=== PATIENT | male | born 1945 | race Caucasian/White ===

== ENCOUNTER 2020-11-07 14:23 | Inpatient (IN) | payer MEDICARE, BC ==
[2020-11-07 15:05] LABS: #Basophils 0.1 10x3/uL (0.0-0.2); #Eosinphils 0.3 10x3/uL (0.0-0.5); #Monocytes 0.5 10x3/uL (0.0-1.1); #Neutrophils 6.2 10x3/uL (1.5-8.4); %Basophils 0.7 % (0.0-2.0); %Eosinophils 3.7 % (0.0-6.0); %Lymphocytes 15.8 % (18.0-47.0); %Monocytes 6.1 % (0.0-10.0); %Neutrophils 73.2 % (40.0-75.0); ALT (SGPT) 9 U/L (8-55); AST (SGOT) 14 U/L (5-34); Albumin 3.8 g/dL (3.4-4.8); Alkaline Phosphatase 99 U/L (40-110); Anion Gap 20 mmol/L (10-20); BUN (Urea Nitrogen) 21 mg/dL (8.4-25.7); Bilirubin, Total 0.5 mg/dL (0.2-1.2); Calc. Creatinine Clearance 0 mL/min (70-130); Calcium 9.5 mg/dL (7.8-10.44); Carbon Dioxide 23 mmol/L (23-31); Chloride 106 mmol/L (98-107); Globulin 3.4 g/dL (2.4-3.5); Glucose 194 mg/dL (83-110); Hemoglobin 11.9 g/dL (13.5-17.5); Mean Corpuscular HGB CONC 32.3 g/dL (32.0-36.0); Mean Corpuscular Hemoglobin 30.4 pg (27.0-33.0); Mean Corpuscular Volume 93.9 fl (81.2-95.1); Mean Platelet Volume 10.6 fl (7.4-10.4); Platelet Count 266 10x3/uL (150-450); Potassium 4.8 mmol/L (3.5-5.1); Protein, Total 7.2 g/dL (5.8-8.1); RBC Distribution Width 14.2 % (11.5-14.5); Red Blood Cell (RBC) Count 3.92 10x6/uL (4.32-5.72); Sodium 144 mmol/L (136-145); White Blood Cell (WBC) Count 8.4 10x3/uL (3.5-10.5)
[2020-11-07] MEDS ORDERED: Nitroglycerin 2% Ointment 1 INCH/1 GM Packet ONE (17:04)
[2020-11-07] MEDS ORDERED: Aspirin 325 MG TAB ONE (17:04)
[2020-11-07] MEDS ORDERED: Furosemide 40 MG/4 ML VIAL ONE (17:55)
[2020-11-07 18:10] LABS: Troponin I Less than 0.010 ng/mL (< 0.028)
[2020-11-07 20:31] VITALS: BMI 39.5
[2020-11-07] MEDS ORDERED: Ondansetron ODT 4 MG TAB PO PRN (20:31)
[2020-11-07] MEDS ORDERED: Acetaminophen 325 MG TAB PO PRN (20:31)
[2020-11-07] MEDS ORDERED: Ondansetron PF 4 MG/2 ML Vial IVP PRN (20:31)
[2020-11-07] MEDS ORDERED: Dextrose 50% Abboject 50 ML SYRINGE SLOW IVP PRN (20:49)
[2020-11-07] MEDS ORDERED: Dextrose 5% in Water 1,000 ML IV PRN (20:49)
[2020-11-07] MEDS ORDERED: Furosemide 40 MG/4 ML VIAL SLOW IVP SCH (21:00)
[2020-11-07] MEDS: Carvedilol 3.125 MG TAB PO SCH (21:03)
[2020-11-07 21:11] LABS: Troponin I Less than 0.010 ng/mL (< 0.028)
[2020-11-08] MEDS ORDERED: Furosemide 40 MG/4 ML VIAL SLOW IVP SCH (06:00)
[2020-11-08] MEDS: Carvedilol 3.125 MG TAB PO SCH (06:13)
[2020-11-08 07:04] LABS: ALT (SGPT) 9 U/L (8-55); AST (SGOT) 16 U/L (5-34); Albumin 3.6 g/dL (3.4-4.8); Alkaline Phosphatase 94 U/L (40-110); Anion Gap 19 mmol/L (10-20); BUN (Urea Nitrogen) 21 mg/dL (8.4-25.7); Bilirubin, Total 0.5 mg/dL (0.2-1.2); Calc. Creatinine Clearance 90 mL/min (70-130); Calcium 9.5 mg/dL (7.8-10.44); Carbon Dioxide 28 mmol/L (23-31); Chloride 100 mmol/L (98-107); Globulin 3.9 g/dL (2.4-3.5); Glucose 178 mg/dL (83-110); Magnesium 1.4 mg/dL (1.6-2.6); Potassium 3.5 mmol/L (3.5-5.1); Protein, Total 7.5 g/dL (5.8-8.1); Sodium 143 mmol/L (136-145)
[2020-11-08 07:19] LABS: #Basophils 0.1 10x3/uL (0.0-0.2); #Eosinphils 0.4 10x3/uL (0.0-0.5); #Monocytes 0.6 10x3/uL (0.0-1.1); #Neutrophils 6.2 10x3/uL (1.5-8.4); %Basophils 0.8 % (0.0-2.0); %Eosinophils 4.9 % (0.0-6.0); %Lymphocytes 15.2 % (18.0-47.0); %Monocytes 7.3 % (0.0-10.0); %Neutrophils 71.6 % (40.0-75.0); Mean Corpuscular HGB CONC 32.4 g/dL (32.0-36.0); Mean Corpuscular Hemoglobin 30.2 pg (27.0-33.0); Mean Platelet Volume 10.4 fl (7.4-10.4); Platelet Count 270 10x3/uL (150-450); RBC Distribution Width 14.2 % (11.5-14.5); Red Blood Cell (RBC) Count 3.98 10x6/uL (4.32-5.72); White Blood Cell (WBC) Count 8.6 10x3/uL (3.5-10.5)
[2020-11-08] MEDS: Aspirin Chewable 81 MG TAB PO SCH (10:46)
[2020-11-08] MEDS: Enoxaparin Sodium 40 MG/0.4 ML SYRINGE SC SCH (10:47)
[2020-11-08 11:29] LABS: Hemoglobin A1c 7.9 % (4.0-6.0)
[2020-11-08] MEDS: Gemfibrozil 600 MG TAB PO SCH (17:13)
[2020-11-08 18:21] LABS: SARS-CoV-2 PCR by NAA Not Detected (NotDetected)
[2020-11-08] MEDS ORDERED: Atorvastatin Calcium 10 MG TAB PO SCH (21:00)
[2020-11-08] MEDS: Carvedilol 12.5 MG TAB PO SCH (21:45)
[2020-11-08] MEDS: Gabapentin 300 MG CAP PO SCH (23:45)
[2020-11-09 04:10] LABS: #Basophils 0.1 10x3/uL (0.0-0.2); #Eosinphils 0.4 10x3/uL (0.0-0.5); #Monocytes 0.7 10x3/uL (0.0-1.1); #Neutrophils 5.2 10x3/uL (1.5-8.4); %Basophils 0.9 % (0.0-2.0); %Eosinophils 4.7 % (0.0-6.0); %Lymphocytes 18.7 % (18.0-47.0); %Neutrophils 66.3 % (40.0-75.0); Hemoglobin 12.2 g/dL (13.5-17.5); Mean Corpuscular HGB CONC 33.2 g/dL (32.0-36.0); Mean Corpuscular Hemoglobin 30.2 pg (27.0-33.0); Mean Corpuscular Volume 90.8 fl (81.2-95.1); Mean Platelet Volume 9.8 fl (7.4-10.4); Platelet Count 260 10x3/uL (150-450); Red Blood Cell (RBC) Count 4.04 10x6/uL (4.32-5.72); White Blood Cell (WBC) Count 7.9 10x3/uL (3.5-10.5)
[2020-11-09 04:30] LABS: Anion Gap 18 mmol/L (10-20); BUN (Urea Nitrogen) 22 mg/dL (8.4-25.7); Calc. Creatinine Clearance 91 mL/min (70-130); Calcium 9.1 mg/dL (7.8-10.44); Carbon Dioxide 27 mmol/L (23-31); Chloride 100 mmol/L (98-107); Glucose 188 mg/dL (83-110); Potassium 3.8 mmol/L (3.5-5.1); Sodium 141 mmol/L (136-145)
[2020-11-09] MEDS: HumaLOG 300 UNITS/3 ML VIAL SC PRN ×3 (06:36→13:48)
[2020-11-09] MEDS: Gabapentin 300 MG CAP PO SCH (08:50)
[2020-11-09] MEDS: Gemfibrozil 600 MG TAB PO SCH (08:51)
[2020-11-09] MEDS: Aspirin Chewable 81 MG TAB PO SCH (08:51)
[2020-11-09] MEDS: Carvedilol 12.5 MG TAB PO SCH (08:51)
[2020-11-09] MEDS: Enoxaparin Sodium 40 MG/0.4 ML SYRINGE SC SCH (08:52)
[2020-11-09] MEDS ORDERED: Pioglitazone HCl 15 MG TAB PO SCH (09:00)
[2020-11-09] MEDS ORDERED: Losartan Potassium 50 MG TAB PO SCH (09:00)
[2020-11-09] MEDS ORDERED: FLUoxetine HCl 20 MG CAP PO SCH (09:00)
[2020-11-09] MEDS ORDERED: Alogliptin 25 MG TAB PO SCH (09:00)
[2020-11-09 11:16] LABS: Hemoglobin A1c 7.8 % (4.0-6.0)
[2020-11-09] MEDS ORDERED: Arformoterol 15 MCG/2 ML NEB NEB SCH ×2 (13:30→18:30)
[2020-11-09 16:15] VITALS: BP 147/77; TEMP 97.9
[2020-11-10] MEDS ORDERED: Furosemide 20 MG TAB PO SCH (12:00)
== END 2020-11-09 16:20 | disposition home or self-care (01) | DRG 291 ==
LOC: CSHERS 14:23 → CSHTELE 17:33 → UNDOADMOB 20:15 → CSHTELE 20:15 → INTOOBSV 20:15 → OBSVTOIN 11-09 12:22
PROVIDERS: ADMIT Student in an Organized Health Care Education/Training Program; ATTEND Family Medicine
DX: I13.0 Hypertensive heart and chronic kidney disease with heart failure and stage 1 through stage 4 chronic kidney disease, or unspecified chronic kidney disease (principal); I50.31 Acute diastolic (congestive) heart failure; J96.01 Acute respiratory failure with hypoxia; E11.22 Type 2 diabetes mellitus with diabetic chronic kidney disease; N18.30 Chronic kidney disease, stage 3 unspecified; J44.9 Chronic obstructive pulmonary disease, unspecified; G47.33 Obstructive sleep apnea (adult) (pediatric); E11.40 Type 2 diabetes mellitus with diabetic neuropathy, unspecified; Z87.891 Personal history of nicotine dependence; Z20.822 Contact with and (suspected) exposure to COVID-19
CPT/HCPCS: 36415; 36416; 71045; 80048; 80053; 83036; 83735; 83880; 84484; 85025; 87635; 93005; 93306; 94640; 96372; 96374; 96376; G0378; J1650; J1940; U0003; U0005

== ENCOUNTER 2022-08-05 10:43 | Outpatient (CLI) | payer MEDICARE, BC | END 2022-08-05 10:44 | disposition home or self-care (01) | LOC: CSHCP 10:43 | PROVIDERS: ATTEND Internal Medicine Critical Care Medicine | DX: R06.00 Dyspnea, unspecified (principal); J98.8 Other specified respiratory disorders; J44.9 Chronic obstructive pulmonary disease, unspecified | CPT/HCPCS: 94060; 94726; 94729; 94760 ==

== ENCOUNTER 2022-10-21 14:02 | Outpatient (CLI) | payer MEDICARE, BC | END 2022-10-21 14:03 | disposition home or self-care (01) | LOC: CSHWCC 14:02 | PROVIDERS: ATTEND Nurse Practitioner Family | DX: E11.621 Type 2 diabetes mellitus with foot ulcer (principal); L97.529 Non-pressure chronic ulcer of other part of left foot with unspecified severity; L97.519 Non-pressure chronic ulcer of other part of right foot with unspecified severity; R60.0 Localized edema ==

== ENCOUNTER 2022-11-04 11:19 | Outpatient (CLI) | payer MEDICARE, BC | END 2022-11-04 11:20 | disposition home or self-care (01) | LOC: CSHWCC 11:19 | PROVIDERS: ATTEND Nurse Practitioner Family | DX: E11.621 Type 2 diabetes mellitus with foot ulcer (principal); L97.519 Non-pressure chronic ulcer of other part of right foot with unspecified severity; L97.529 Non-pressure chronic ulcer of other part of left foot with unspecified severity; R60.0 Localized edema ==

== ENCOUNTER 2022-12-23 10:32 | Outpatient (CLI) | payer MEDICARE, BC | END 2022-12-23 10:33 | disposition home or self-care (01) | LOC: CSHWCC 10:32 | PROVIDERS: ATTEND Nurse Practitioner Family | DX: S80.822D Blister (nonthermal), left lower leg, subsequent encounter (principal); E11.621 Type 2 diabetes mellitus with foot ulcer; L97.519 Non-pressure chronic ulcer of other part of right foot with unspecified severity; R60.0 Localized edema | CPT/HCPCS: 11042 ==